=== PATIENT | male | born 1975 | race Caucasian/White ===

== ENCOUNTER → 2016-04-03 | Outpatient (CLI) | payer OTHER ==
--- NOTE | 2016-04-03 13:31 | XR ---
EXAMINATION TYPE: XR hand complete LT DATE OF EXAM: 04/03/2016 1:22 PM COMPARISON: NONE HISTORY: Pain left fifth digit FINDINGS: There is a displaced fracture midshaft proximal phalanx fifth digit. Adjacent soft tissue edema. IMPRESSION: 1. Displaced fracture mid shaft proximal phalanx fifth digit.
== END | disposition home or self-care (01) ==
LOC: RADXRMAIN 13:07
PROVIDERS: ATTEND Emergency Medicine
DX: S62.617A Displaced fracture of proximal phalanx of left little finger, initial encounter for closed fracture (principal)

== ENCOUNTER → 2018-01-21 | Outpatient (CLI) | payer BC ==
--- NOTE | 2018-01-21 08:06 | MR ---
EXAMINATION TYPE: MR lumbar spine wo con DATE OF EXAM: 01/21/2018 COMPARISON: Lumbar spine x-ray January 04, 2018. CT abdomen and pelvis September 10, 2015. HISTORY: Lumbago With Sciatica Left Side per order. Back pain for 20 years now causing pain into left leg for 6 weeks per patient. TECHNIQUE: Multiplanar, multisequence imaging of the lumbar spine is performed without IV contrast. FINDINGS: Sagittal images of the lumbar spine show vertebral body heights and alignment to appear sat isfactory. There is disc desiccation with mild to moderate disc space narrowing L3-L4 through the L5- S1 levels. Mild disc space narrowing is also seen at the L1-L2 level. Posterior disc herniations are noted L4-L5 and L5-S1 levels on sagittal images. The conus medullaris is normal in position and sign al ending inferior L1 level. The bone marrow signal intensity is overall slightly heterogeneous with minimal multilevel anterior spurring. Axial images show the T12-L1 level to appear within normal limits. Axial images at the L1-L2 level shows mild to moderate broad disc bulge mildly effacing anterior thec al sac on axial image 22. Bilateral neural foramina remain patent. Axial images at the L2-L3 level shows mild broad disc bulge but spinal canal is preserved and bilater al neural foramina are patent. Axial images at the L3-L4 level show mild to moderate broad disc bulge mildly effacing anterior theca l sac and causing mild bilateral anterior inferior neural foraminal narrowing. Axial images at the L4-L5 level show left paracentral disc protrusion effacing anterior thecal sac. B ilateral neural foramina are patent. Axial images at the L5-S1 level show mild facet degenerative changes bilaterally. There is broad disc bulge with central disc protrusion seen but spinal canal is preserved. There is mild to moderate brooke ateral inferior neural foraminal narrowing noted. No suspicious incidental retroperitoneal findings are seen. IMPRESSION: Multilevel degenerative changes in the lumbar spine as detailed above. No focal prominent disc herniation seen to account for patient's left-sided radiculopathy type symptoms however.
== END ==
LOC: RADMRIMAIN 07:22
PROVIDERS: ATTEND Family Medicine
DX: M99.74 Connective tissue and disc stenosis of intervertebral foramina of sacral region (principal); M47.27 Other spondylosis with radiculopathy, lumbosacral region; M51.17 Intervertebral disc disorders with radiculopathy, lumbosacral region
CPT/HCPCS: 72148

== ENCOUNTER 2018-04-05 10:56 | Emergency (ER) | payer BC ==
[2018-04-05] MEDS ORDERED: DIAZEPAM 5 MG TAB PO STA (11:28)
[2018-04-05] MEDS ORDERED: HYDROmorphone 0.5 MG/0.5 ML SYRINGE IM STA ×2 (11:28→12:32)
--- NOTE | 2018-04-05 12:33 | ED ---
General Adult HPI - General Chief complaint: Back Pain/Injury Stated complaint: back pain Time Seen by Provider: 04/05/18 11:06 Source: patient Mode of arrival: wheelchair Limitations: no limitations - History of Present Illness Initial comments: 6-year-old male presenting today for chief complaint of low back pain. Patient states has been struggling with low back pain and left-sided sciatica since November. He states he has been evaluated by Dr. Tyler Lopes and has an appointment for injections next week. He had recent MRI obtained 12/2017 and she has not been working since November when the pain started, he denies any injury to the back since diagnosis. She denies any history of fever, chills, night sweats, IV drug use, history of cancer, urinary retention, loss of bowel bladder control, numbness or loss sensation of the lower extremities or weakness of the lower extremity. He states that the pain is lumbar spine increases with range of motion of the left leg. He states today he woke up with increased in pain from baseline. He states he has experienced episodic increases in his chronic pain. He states his left-sided sciatica never is below a 6-7 out of 10 he states this is now how he lives. Patient denies any increase in the left-sided sciatica. He states this is at baseline. He states he does have midline tenderness to palpation of the lumbar spine. He denies any specific injury. Remaining review of systems negative, Patient denies any recent shortness of breath, chest pain, abdominal pain, nausea or vomiting, numbness or tingling, dysuria or hematuria, constipation or diarrhea, headaches or visual changes, or any other complaints.Pt states he took two norco 7.5 prior to arrival. - Related Data Home Medications Medication Instructions Recorded Confirmed Famotidine [Pepcid] 20 mg PO BID 04/05/18 04/05/18 Gabapentin [Neurontin] 300 mg PO HS 04/05/18 04/05/18 HYDROcodone/APAP 7.5-325MG [[place] 1 tab PO TID PRN 04/05/18 04/05/18 7.5-325] predniSONE See Taper PO DIRECTED 04/05/18 04/05/18 Allergies Allergy/AdvReac Type Severity Reaction Status Date / Time sulfamethoxazole Allergy Rash/Hives Verified 04/05/18 11:35 [From Bactrim] trimethoprim [From Bactrim] Allergy Rash/Hives Verified 04/05/18 11:35 Review of Systems ROS Statement: Those systems with pertinent positive or pertinent negative responses have been documented in the HPI. ROS Other: All systems not noted in ROS Statement are negative. Past Medical History Additional Past Medical History / Comment(s): chronic back pain History of Any Multi-Drug Resistant Organisms: None Reported Past Surgical History: No Surgical Hx Reported Past Psychological History: No Psychological Hx Reported Smoking Status: Never smoker Past Alcohol Use History: None Reported Past Drug Use History: None Reported General Exam - General Exam Comments Initial Comments: General: The patient is awake and alert, in no distress, and does not appear acutely ill. Eye: Pupils are equal, round and reactive to light, extra-ocular movements are intact. No nystagmus. There is normal conjunctiva bilaterally. No signs of icterus. Ears, nose, mouth and throat: There are moist mucous membranes and no oral lesions. Neck: The neck is supple, there is no tenderness or JVD. Cardiovascular: There is a regular rate and rhythm. No murmur, rub or gallop is appreciated. Respiratory: Lungs are clear to auscultation, respirations are non-labored, breath sounds are equal. No wheezes, stridor, rales, or rhonchi. Gastrointestinal: Soft, non-distended, non-tender abdomen without masses or organomegaly noted. There is no rebound or guarding present. No pulsatile masses. Musculoskeletal: Upon inspection of the lumbar spine there is no abnormal findings. Patient has no midline tenderness to palpation of the entire length spell calm. There is no paravertebral tenderness. Patient does have positive straight leg raise of the left. Patient does have increased pain with any range of motion of the lumbar spine. Patient has full strength lower extremities are equal in comparison bilaterally. Patient has full sensation lower extremities from hip to toes, equal comparison with no saddle anesthesia. Patient is able to ambulate fully weightbearing. No tender palpation of the hip joint. DP and radial pulses equal bilaterally 2+. Neurological: A&O x 3. CN II-XII intact, There are no obvious motor or sensory deficits. Coordination appears grossly intact. Speech is normal. Skin: Skin is warm and dry and no rashes or lesions are noted. Psychiatric: Cooperative, appropriate mood & affect, normal judgment. Limitations: no limitations Course Vital Signs 04/05/18 04/05/18 11:02 13:24 Temperature 98.4 F 97.6 F Pulse Rate 100 73 Respiratory 18 19 Rate Blood Pressure 156/88 142/73 O2 Sat by Pulse 100 99 Oximetry Medical Decision Making - Medical Decision Making Uncontrolled appearing 42-year-old male. History of chronic back pain followed by with tic surgery. Patient presenting for acute on Chronic pain, there is no concerning physical exam or history findings. No red flags. Patient appears well, patient afebrile. Patient states this is not the worst pain he has had, there is no signs concerning for cauda equina at this time. Patient neurovascular intact. Patient was given IM analgesics during his stay in the emergency department as well as Valium. Patient states this helped minimally. At this time I do feel patient is stable for outpatient follow-up with orthopedic surgery, for acute on chronic low back pain. Patient is agreeable plan at discharge, he states he will call orthopedic surgery upon discharge he appears happy with plan. Patient ambulatory upon discharge denied questions at this time. Return parameters were discussed at length the patient verbalizes understanding. Patient discharged stable condition. I did discuss the case attending provider Dr. Montano who was agreeable plan discharge. Disposition Clinical Impression: Chronic low back pain, Chronic sciatica of left side, Acute exacerbation of chronic low back pain Disposition: HOME SELF-CARE Condition: Good Instructions (If sedation given, give patient instructions): Acute Low Back Pain (ED) Additional Instructions: Please use medication as discussed. Please follow-up with family doctor in the next 24 hours, please call Dr Bernal office and follow-up in the next 1-2 days. Please return to emergency room if the symptoms increase or worsen or for any other concerns. Is patient prescribed a controlled substance at d/c from ED?: No Referrals: Robby Reed DO [Primary Care Provider] - 1-2 days Nelly Lopes DO [Doctor of Osteopathic Medicine] - 1-2 days Time of Disposition: 12:33
[2018-04-05 13:25] VITALS: BP 142/73; PULSE 73; RESP 19; TEMP 97.6
== END 2018-04-05 13:25 | disposition home or self-care (01) ==
LOC: EC 10:56
DX: M54.42 Lumbago with sciatica, left side (principal); G89.29 Other chronic pain; Z79.52 Long term (current) use of systemic steroids; Z79.899 Other long term (current) drug therapy; Z88.2 Allergy status to sulfonamides
CPT/HCPCS: 99283; 96372 ×2; J1170

== ENCOUNTER → 2020-02-07 | Outpatient (CLI) | payer BC ==
--- NOTE | 2020-02-07 10:08 | P.STRESS ---
- Stress Test Note Stress Test Results/Findings: Exam Performed: stress test Exam Date: 02/07/20 Reason for Exam: Chest Pressure Height: 6 ft 1 in Weight: 87.543 kg Protocol: Roge Stage: 4 Duration of Exercise: 12:36 Resting Heart Rate: 62 Resting Blood Pressure: 136/91 Maximum Achieved Heart Rate: 179 Maximum Achieved Blood Pressure: 193/88 85% PMHR: 151 100% PMHR: 178 METS: 12.9 Technologist Comment: Stress Test Results/Findings: Patient underwent exercise stress EKG with a Roge protocol treadmill stress test. Patient exercised into Stage 4 for a total of 12 minutes 36 seconds reaching a total of 12.9 METS. Patient's maximum heart rate was 179 which represented 100 % age-predicted maximum heart rate. Stress EKG findings: At baseline patient's EKG showed normal sinus rhythm, normal axis, no significant ST or T-wave abnormalities. At peak exercise, EKG showed nonspecific 0.[address] depressions in the inferolateral leads. Conclusions: 1. Normal EKG response to exercise without evidence of inducible ischemia. 2. Excellent exercise capacity.
== END | disposition home or self-care (01) ==
LOC: RADNMMAIN 08:34
PROVIDERS: ATTEND Family Medicine
DX: R07.9 Chest pain, unspecified (principal)
CPT/HCPCS: 93017

== ENCOUNTER 2021-07-18 08:11 | Day surgery (SDC) | payer BC ==
[2021-07-17 14:42] VITALS: BMI 25.7
[~2021-07-18 08:11] MED LIST: LACTATED RINGERS 1,000 ML IV SCH
[2021-07-18 08:47] VITALS: TEMP 97.8
[2021-07-18] MEDS ORDERED: LIDOCAINE 2% INJ 20 MG/ML (2 ML VIAL) ONE (09:16)
[2021-07-18] MEDS ORDERED: PROPOFOL 10 MG/ML 20 ML VIAL IV ONE (09:16)
--- NOTE | 2021-07-18 09:49 | P.PCN ---
Date of Procedure: 07/18/21 Procedure(s) Performed: BRIEF HISTORY: Patient is a 45-year-old pleasant white male scheduled for an elective colonoscopy as a part of evaluation change in bowel habits for the last 1 year duration. PROCEDURE PERFORMED: Colonoscopy. PREOPERATIVE DIAGNOSIS: Change in bowel habits. IV sedation per Anesthesia. PROCEDURE: After informed consent was obtained, the patient, was brought into the endoscopy unit. IV sedation was administered by Anesthesia under continuous monitoring. Digital rectal examination was normal. Initially the Olympus CF-160 flexible video colonoscope was then inserted in the rectum, gradually advanced into the cecum without any difficulty. Careful examination was performed as the scope was gradually being withdrawn. Ileocecal valve and the appendiceal orifice were visualized and appeared normal. Prep was excellent. terminal ileum was intubated and approximately 20 cm visualized and appeared normal.. Mucosa of the cecum, ascending colon, transverse colon, descending colon, sigmoid colon, and rectum appeared normal. Scattered sigmoid diverticulosis. Retroflexion was performed in the rectum and no lesions were seen. The patient tolerated the procedure well. IMPRESSION: Normal-appearing terminal ileum Normal-appearing colon from rectum to cecum with no evidence of colorectal neoplasia. Scattered sigmoid diverticulosis. RECOMMENDATIONS: Findings of this examination were discussed with the patient as well as his family. He was advised to be a high-fiber diet and take fiber supplements as needed. Recommend repeat screening colonoscopy in 10 years..
[2021-07-18 10:07] VITALS: BP 121/74; PULSE 72; RESP 18
== END 2021-07-18 10:39 | disposition home or self-care (01) ==
LOC: ORWHC2ENDO 08:11
PROVIDERS: ATTEND Internal Medicine Gastroenterology
DX: K57.30 Diverticulosis of large intestine without perforation or abscess without bleeding (principal); K21.9 Gastro-esophageal reflux disease without esophagitis; Z79.891 Long term (current) use of opiate analgesic; Z79.52 Long term (current) use of systemic steroids; Z79.899 Other long term (current) drug therapy; Z88.2 Allergy status to sulfonamides
CPT/HCPCS: 45378; J2704; J2001

== ENCOUNTER 2023-03-02 22:57 | Emergency (ER) | payer BC ==
[2023-03-02 23:17] LABS: Basophils # (A) 0.1 k/uL (0-0.2); Basophils % (A) 1 %; Eosinophils # (A) 0.3 k/uL (0-0.7); Eosinophils % (A) 4 %; HGB 15.8 gm/dL (13.0-17.5); Lymphocytes # (A) 2.7 k/uL (1.0-4.8); Lymphocytes % (A) 40 %; MCH 30.6 pg (25.0-35.0); MCHC 34.3 g/dL (31.0-37.0); MCV 89.1 fL (80.0-100.0); Mean Platelet Volume 7.5; Monocytes # (A) 0.6 k/uL (0-1.0); Monocytes % (A) 9 %; Neutrophils # (A) 2.8 k/uL (1.3-7.7); Neutrophils % (A) 42 %; Platelet Count 268 k/uL (150-450); RBC 5.16 m/uL (4.30-5.90); WBC 6.7 k/uL (3.8-10.6)
[2023-03-02 23:27] LABS: INR 0.9 (<1.2); Partial Thromboplastin Time 24.8 sec (22.0-30.0)
[2023-03-02 23:28] LABS: ALT 52 U/L (4-49); AST 39 U/L (17-59); African American GFR (CKD) >90 (>60 ml/min/1.73 sqM); Albumin 4.6 g/dL (3.5-5.0); Alkaline Phosphatase 49 U/L (38-126); Anion Gap 13 mmol/L; Blood Urea Nitrogen 16 mg/dL (9-20); Calcium 9.2 mg/dL (8.4-10.2); Carbon Dioxide 26 mmol/L (22-30); Chloride 101 mmol/L (98-107); Glucose 141 mg/dL (74-99); Non-African American GFR(CKD) >90 (>60 ml/min/1.73 sqM); Potassium 3.6 mmol/L (3.5-5.1); Sodium 140 mmol/L (137-145); Total Bilirubin 0.4 mg/dL (0.2-1.3); Total Protein 7.2 g/dL (6.3-8.2)
--- NOTE | 2023-03-03 00:18 | XR ---
EXAM: XR Chest, 2 Views CLINICAL HISTORY: ITS.REASON XR Reason: chest pain TECHNIQUE: Frontal and lateral views of the chest. COMPARISON: No relevant prior studies available. FINDINGS: Lungs: Unremarkable. No consolidation. Pleural space: Unremarkable. No pneumothorax. Heart: Unremarkable. No cardiomegaly. Mediastinum: Unremarkable. Normal mediastinal contour. Bones/joints: Unremarkable. No acute fracture. IMPRESSION: Normal chest x-rays.
[2023-03-03 01:49] VITALS: RESP 18; TEMP 98.6
--- NOTE | 2023-03-03 03:52 | ED ---
Chest Pain HPI - General Chief Complaint: Chest Pain Stated Complaint: Nausea,Chest tightness, arm pain Time Seen by Provider: 03/03/23 03:29 Source: patient Mode of arrival: ambulatory Limitations: no limitations - History of Present Illness Initial Comments: Patient's 47-year-old man who has been having intermittent chest pains going back weeks to months. He had episode tonight associated with some left arm sensations and therefore comes 7 evaluation. There is no exertional component and patient states she does have decent sized tolerance. No associated symptoms. MD Complaint: chest pain -: hour(s) Onset: during rest Pain Location: left chest Pain Radiation: LUE Severity: mild Quality: dull Consistency: intermittent Improves With: nothing Worsens With: nothing Treatments Prior to Arrival: none - Related Data Home Medications Medication Instructions Recorded Confirmed No Known Home Medications 07/17/21 07/17/21 Allergies Allergy/AdvReac Type Severity Reaction Status Date / Time sulfamethoxazole Allergy Rash/Hives Verified 03/02/23 23:02 [From Bactrim] trimethoprim [From Bactrim] Allergy Rash/Hives Verified 03/02/23 23:02 Review of Systems ROS Statement: Those systems with pertinent positive or pertinent negative responses have been documented in the HPI. ROS Other: All systems not noted in ROS Statement are negative. Constitutional: Denies: fever, chills, weakness Respiratory: Denies: cough, dyspnea Cardiovascular: Reports: chest pain. Denies: palpitations, dyspnea on exertion, edema, syncope Gastrointestinal: Denies: abdominal pain, nausea, vomiting Genitourinary: Denies: dysuria, hematuria Musculoskeletal: Denies: back pain Skin: Denies: rash Neurological: Denies: headache, weakness EKG Findings - EKG Results: EKG: interpreted by ERMD, sinus rhythm (Rate 80 bpm), normal ST/T - Blocks, [place], Hypertrophy, ST Abn: AV and intraventricular conduction: right bundle branch block (fixed/intermittent, complete/incomplete) (Possible incomplete right bundle branch) QRS axis and voltage: right axis deviation (+90 to +180) (Borderline right axis) Past Medical History Additional Past Medical History / Comment(s): Chronic back pain. Changes in bowel habits. History of Any Multi-Drug Resistant Organisms: None Reported Past Surgical History: Back Surgery Additional Past Surgical History / Comment(s): Vasectomy. Past Anesthesia/Blood Transfusion Reactions: No Reported Reaction Past Psychological History: No Psychological Hx Reported Smoking Status: Never smoker Past Alcohol Use History: None Reported Past Drug Use History: None Reported - Past Family History Mother Family Medical History: No Reported History General Exam Limitations: no limitations General appearance: alert, in no apparent distress Head exam: Present: atraumatic, normocephalic Eye exam: Present: normal appearance. Absent: scleral icterus, conjunctival injection Neck exam: Present: normal inspection Respiratory exam: Present: normal lung sounds bilaterally. Absent: respiratory distress, wheezes, rales, rhonchi, stridor, chest wall tenderness, accessory muscle use Cardiovascular Exam: Present: regular rate, normal rhythm, normal heart sounds. Absent: systolic murmur, diastolic murmur, rubs, gallop GI/Abdominal exam: Present: soft. Absent: distended, tenderness, guarding, rebound, rigid, mass Extremities exam: Present: normal inspection, normal capillary refill. Absent: pedal edema, calf tenderness Back exam: Present: normal inspection. Absent: CVA tenderness (R), CVA tenderness (L) Neurological exam: Present: alert Skin exam: Present: warm, dry, intact, normal color. Absent: rash Course Vital Signs 03/02/23 03/03/23 03/03/23 22:59 01:45 04:32 Temperature 97.9 F 98.6 F Pulse Rate 102 H 57 L 64 Respiratory 20 18 18 Rate Blood Pressure 168/85 123/78 124/78 O2 Sat by Pulse 99 100 100 Oximetry Chest Pain MDM - MDM The patient had chest x-ray which I interpreted as negative for acute infiltrate, pneumothorax, congestive heart failure. Was pt. sent in by a medical professional or institution (, PA, LABOURERS, urgent c are, hospital, or snf...) When possible be specific @ -[No] Did you speak to anyone other than the patient for history (EMS, parent, family, police, friend...)? What history was obtained from this source @ -[No] Did you review nursing and triage notes (agree or disagree)? Why? @ -[I reviewed and agree with nursing and triage notes] Were old charts reviewed (outside hosp., previous admission, EMS record, old EKG, old radiological studies, urgent care reports/EKG's, snf records)? Report findings @ -[No old charts were reviewed] Differential Diagnosis (chest pain, altered mental status, abdominal pain women, abdominal pain men, vaginal bleeding, weakness, fever, dyspnea, syncope, headache, dizziness, GI bleed, back pain, seizure, CVA, palpatations, mental health, musculoskeletal)? @ -[Differential Chest Pain: Stable Angina, Unstable Angina, STEMI, NSTEMI Aortic Dissection, Pneumothorax, Musculoskeletal, Esophageal Spasm GERD, Cholecystitis, Pancreatitis, Zoster, this is not meant to be an all-inclusive list. EKG interpreted by me (3pts min.). @ -[I interpreted As above] X-rays interpreted by me (1pt min.). @ -[I interpreted as above CT interpreted by me (1pt min.). @ -[None done] U/S interpreted by me (1pt. min.). @ -[None done] What testing was considered but not performed or refused? (CT, X-rays, U/S, labs)? Why? @ -[None] What meds were considered but not given or refused? Why? @ -[None] Did you discuss the management of the patient with other professionals (professionals i.e. , PA, LABOURERS, lab, RT, psych nurse, social media marketing analyst, commercial title examiner, teacher, career services officer, shelter case manager)? Give summary @ -[No] Was smoking cessation discussed for >3mins.? @ -[No] Was critical care preformed (if so, how long)? @ -[No] Were there social determinants of health that impacted care today? How? (Homelessness, low income, unemployed, alcoholism, drug addiction, transportation, low edu. Level, literacy, decrease access to med. care, long term, rehab)? @ -[No] Was there de-escalation of care discussed even if they declined (Discuss DNR or withdrawal of care, Hospice)? DNR status @ -[No] What co-morbidities impacted this encounter? (DM, HTN, Smoking, COPD, CAD, Cancer, CVA, ARF, Chemo, Hep., AIDS, mental health diagnosis, sleep apnea, morbid obesity)? @ -[None] Was patient admitted / discharged? Hospital course, mention meds given and route, prescriptions, significant lab abnormalities, going to OR and other pertinent info. @ -[Patient is 47-year-old man who presents to have evaluation for chest pain. The workup here is negative, and discussed admission, but at this point patient will try outpatient workup. We discussed the appropriate further care as well as return parameters Undiagnosed new problem with uncertain prognosis? @ -[No] Drug Therapy requiring intensive monitoring for toxicity (Heparin, Nitro, Insulin, Cardizem)? @ -[No] Were any procedures done? @ -[No] Diagnosis/symptom? @ -[Acute chest pain Acute, or Chronic, or Acute on Chronic? @ -[Acute Uncomplicated (without systemic symptoms) or Complicated (systemic symptoms)? @ -[Uncomplicated Side effects of treatment? @ -[No] Exacerbation, Progression, or Severe Exacerbation? @ -[No] Poses a threat to life or bodily function? How? (Chest pain, [place], CA, pneumonia, PE, COPD, DKA, ARF, appy, cholecystitis, CVA, Diverticulitis, Homicidal, Suicidal, threat to staff... and all critical care pts) @ -[There is like low likelihood, however patient understands and will have close follow-up with cardiology and return parameters discussed. Disposition Clinical Impression: Chest pain Disposition: HOME SELF-CARE Condition: Good Instructions (If sedation given, give patient instructions): Chest Pain (ED) Is patient prescribed a controlled substance at d/c from ED?: No Referrals: Robby Reed DO [Primary Care Provider] - 1-2 days
[2023-03-03 04:47] VITALS: BP 124/78; PULSE 64
== END 2023-03-03 04:32 | disposition home or self-care (01) ==
LOC: EC 22:57
DX: R07.89 Other chest pain (principal); Z88.2 Allergy status to sulfonamides; Z88.8 Allergy status to other drugs, medicaments and biological substances
CPT/HCPCS: 36415; 71046; 80053; 84484; 85025; 85610; 85730; 93005; 99285

== ENCOUNTER → 2023-04-07 | Outpatient (CLI) | payer BC ==
--- NOTE | 2023-04-07 16:05 | US ---
EXAMINATION TYPE: US carotid duplex BILAT DATE OF EXAM: 04/07/2023 COMPARISON: NONE CLINICAL INDICATION: Male, 47 years old with history of R07.89 OTHER CHEST PAIN; Patient states chest pain. No high BP. TECHNIQUE: Carotid duplex ultrasound examination. Indirect Doppler criteria was utilized. FINDINGS: EXAM MEASUREMENTS: RIGHT: Peak Systolic Velocity (PSV) cm/sec ----- Right CCA: 156.0 ----- Right ICA: 115.0 ----- Right ECA: 72.5 ICA/CCA ratio: 0.7 RIGHT: End Diastole cm/sec ----- Right CCA: 22.7 ----- Right ICA: 38.8 ----- Right ECA: 8.2 LEFT: Peak Systolic Velocity (PSV) cm/sec ----- Left CCA: 143.0 ----- Left ICA: 101.0 ----- Left ECA: 76.0 ICA/CCA ratio: 0.7 LEFT: End Diastole cm/sec ----- Left CCA: 31.4 ----- Left ICA: 27.5 ----- Left ECA: 0.0 VERTEBRALS (direction of flow): Right Vertebral: Antegrade Left Vertebral: Antegrade Rhythm: Normal ATTENDANCE CLERK NOTES: Elevated bilateral CCA velocities. No plaque or wall thickening. IMPRESSION: 1. No hemodynamically significant stenosis and no significant physical plaque. Criteria for Assigning % of Stenosis / Diameter reduction (Estimation based on the indirect measurements of the internal carotid artery velocities (ICA PSV). 1. Normal (no stenosis)=ICA PSV < 125 cm/s: ratio < 2.0: ICA EDV<40 cm/s. 2. Less than 50% stenosis=ICA PSV < 125 cm/s: ratio < 2.0: ICA EDV<40 cm/s. 3. 50 to 69% stenosis=ICA PSV of 125 to 230 cm/s: ration 2.0 ? 4.0: ICA EDV 40-100 cm/s. 4. Greater than 70% stenosis to near occlusion= ICA PSV > 230 cm/s: ratio > 4.0: ICA EDV > 100 cm/s. 5. Near occlusion= ICA PSV velocities may be low or undetectable: variable ratio and ICA EDV. 6. Total occlusion=unable to detect flow.
--- NOTE | 2023-04-08 10:52 | CA ---
Transthoracic Echo Report Name: Stuart Chu Age: 47 Gender: M : 1975 Exam Date: 04/07/2023 14:14 Exam Location: [place] [facility] Ht (in): 73 Wt (lb): 200 Ordering Physician: Robby Reed DO Attending/Referring Phys: Line Cleaner Jeanne Bragg RDCS Procedure CPT: Indications: R07.89 other chest pain Cardiac Hx: Technical Quality: Good Contrast 1: Total Dose (mL): Contrast 2: Total Dose (mL): MEASUREMENTS (Male / Female) Normal Values 2D ECHO LV Diastolic Diameter PLAX 5.7 cm 4.2 - 5.9 / 3.9 - 5.3 cm LV Systolic Diameter PLAX 3.4 cm IVS Diastolic Thickness 0.7 cm 0.6 - 1.0 / 0.6 - 0.9 cm LVPW Diastolic Thickness 0.7 cm 0.6 - 1.0 / 0.6 - 0.9 cm LV Relative Wall Thickness 0.2 LVOT Diameter 2.3 cm Aortic Root Diameter 3.2 cm LV Diastolic Volume MOD BP 147.0 cm??? 67 - 155 / 56 - 104 cm??? LV Systolic Volume MOD BP 60.2 cm??? 22 - 58 / 19 - 49 cm??? LV Ejection Fraction MOD BP 59.1 % >= 55 % LV Cardiac Index MOD BP 2197.6 cm???/min???m??? LV Diastolic Volume MOD 4C 149.5 cm??? LV Systolic Volume MOD 4C 64.2 cm??? LV Ejection Fraction MOD 4C 57.0 % LV Cardiac Index MOD 4C 2157.6 cm???/min???m??? LV Diastolic Length 4C 9.4 cm LV Systolic Length 4C 7.6 cm LV Diastolic Volume MOD 2C 139.8 cm??? LV Systolic Volume MOD 2C 51.7 cm??? LV Ejection Fraction MOD 2C 63.1 % LV Cardiac Index MOD 2C 2232.6 cm???/min???m??? LV Diastolic Length 2C 9.1 cm LV Systolic Length 2C 7.0 cm Ascending Aorta Diameter 3.0 cm DOPPLER AV Peak Velocity 132.7 cm/s AV Peak Gradient 7.0 mmHg AV Mean Velocity 88.3 cm/s AV Mean Gradient 3.5 mmHg AV Velocity Time Integral 27.3 cm LVOT Peak Velocity 110.9 cm/s LVOT Peak Gradient 4.9 mmHg LVOT Velocity Time Integral 23.0 cm LVOT Stroke Volume 98.7 cm??? LVOT Stroke Volume Index 45.9 ml/m??? LVOT Cardiac Index 2499.7 cm???/min???m??? AV Area Cont Eq vti 3.6 cm??? AV Area Cont Eq pk 3.6 cm??? Mitral E Point Velocity 79.0 cm/s Mitral A Point Velocity 40.8 cm/s Mitral E to A Ratio 1.9 MV Deceleration Time 181.9 ms MV E' Velocity 12.1 cm/s Mitral E to MV E' Ratio 6.5 PV Peak Velocity 92.2 cm/s PV Peak Gradient 3.4 mmHg FINDINGS Left Ventricle Left ventricular ejection fraction is estimated at 60-65 %. Mildly increased left ventricular systolic volume. Left ventricular cavity size normal. Left ventricular wall thickness normal. Right Ventricle Right ventricular dilatation. Unable to estimate the right ventricular systolic pressure. Right Atrium Normal right atrial size. Left Atrium Normal left atrial size. Mitral Valve Structurally normal mitral valve. No mitral stenosis, regurgitation or prolapse. Aortic Valve Trileaflet aortic valve. Trace aortic regurgitation. Tricuspid Valve Structurally normal tricuspid valve. Trace tricuspid regurgitation. Pulmonic Valve Structurally normal pulmonic valve. No pulmonic regurgitation. Pericardium No pericardial effusion. Aorta Normal size aortic root and proximal ascending aorta. CONCLUSIONS Left ventricular ejection fraction 60-65% No mitral regurgitation Trace aortic regurgitation Trace tricuspid regurgitation Previewed by: Dr. Jarett Felton DO (Electronically Signed) Final Date: 08 April 2023 10:52
== END | disposition home or self-care (01) ==
LOC: RADECHMAIN 13:53
PROVIDERS: ATTEND Family Medicine
DX: K21.00 Gastro-esophageal reflux disease with esophagitis, without bleeding (principal); K29.00 Acute gastritis without bleeding; I35.1 Nonrheumatic aortic (valve) insufficiency; I36.1 Nonrheumatic tricuspid (valve) insufficiency; R42 Dizziness and giddiness; R07.89 Other chest pain
CPT/HCPCS: 93306; 93880